=== PATIENT | male | born 1950 | race Caucasian/White ===

== ENCOUNTER 2025-08-16 11:07 | Outpatient (REF) | payer MEDICARE, SELFPAY ==
--- OUTSIDE RECORDS SUMMARY | 2025-08-16 11:55 | XMS_ITS | Encounter Summary ---
Author Organization [facility] Address [address] [place] [address] Phone Care Team Providers Care Gang Drill Operator Name Role Phone [place] Maximino Cronin DO Primary Care Provider [phone] Encounter Details Date Type Department Care Team (Latest Contact Info) Description 02/13/2019 Transcribe Orders Virtual Department [address] [place] [address] Vick Flores MD [address] [place] [address], [address] [address] [email or web address] Calculus of kidney (Primary Dx) Social History Tobacco Use Types Packs/Day Years Used Date Smoking Tobacco: Never Smokeless Tobacco: Never Alcohol Use Standard Drinks/Week Comments No 0 (1 standard drink = 0.6 oz pur e alcohol) Sex and Gender Information Value Date Recorded Sex Assigned at Male 12/05/2017 10:22 AM EST Legal Sex Male 10:20 AM EDT Gender Identity Male 12/05/2017 10:22 AM EST Sexual Orientation Straight 12/05/2017 10 :22 AM EST documented as of this encounter Plan of Treatment Upcoming Encounters Date Type Department Care Team (Late st Contact Info) Description 10/07/2025 11:00 AM EST Office Visit [facility] Neurology [address] [place] [address] [place] [address] Celio Winters MD [address] [facility] [place] [address] 03/10/2026 10:20 AM EDT Office Visit [facility] [address], [address] [place] [address] Benigno Mojica MD, [place] [address] [facility], [address] [place] [address] [email or web address] documented as of this encounter Results * US Kidneys (04/27/2019 7:59 AM EDT) Anatomical Region Laterality Modality Abdomen, Kidney Ultrasound 04/27/2019 12:2 0 PM EDT Impressions 04/27/2019 12:49 PM EDT Normal study of the kidneys. POS [id number] Narrative 04/27/2019 12:49 PM EDT HISTORY: Flank pain, urinary tract calculi. COMPARISON: None. FINDINGS: Right kidney: Kidney normal in size measuring 11.7 cm in the long axis. The kidney is normal in echogenicity. No evidence of masses, calculi, pelvocaliectasis or significant cortical thinning. Left kidney: Kidney normal in size measuring 12.6 cm in the long axis. The kidney is normal in echogenicity. No evidence of masses, calculi, pelvocaliectasis or significant cortical thinning. Procedure Note Alok Zapata MD - 04/27/2019 HISTORY: Flank pain, urinary tract calculi. COMPARISON: None. FINDINGS: Right kidney: Kidney normal in size measuring 11.7 cm in the long axis.The kidney is normal in echogenicity. No evidence of masses, calculi,pelvocaliectasis or significant cortical thinning. Left kidney: Kidney normal in size measuring 12.6 cm in the long axis.The kidney is normal in echogenicity. No evidence of masses, calculi,pelvocaliectasis or significant cortical thinning. IMPRESSION: Normal study of the kidneys. POS [id number] us Vick Flores MD [facility] RENAL Final Result documented in this encounter Visit Diagnoses Diagnosis Calculus of kidney- Primary Calculus of kidney documented in this encounter Care Teams Gang Drill Operator Relationship Specialty Start Date End Date Maximino Swartz DO [email or web address] PCP - General Internal Medicine 09/30/17 documented as of this encounter Additional Source Comments The information contained in this document represents components of the legal health record. It is not the complete legal health record.[facility]
--- OUTSIDE RECORDS SUMMARY | 2025-08-16 11:55 | XMS_ITS | Encounter Summary ---
Author Organization [facility] Address [address] [address] Phone Care Team Providers Care Fudge Candy Maker Name Role Phone Maximino Swartz DO Primary Care Provider [phone] Encounter Details Date Type Department Care Team (Late st Contact Info) Description 01/25/2018 Transcribe Orders [facility] [address] [place] [id number] Maximino Swartz DO [address] [place] [address] [email or web address] Elevated prostate specific antigen (PSA) (Primary Dx) Social History Tobacco Use Types [...] Description 10/07/2025 11:00 AM EST Office Visit [facility] Neurology [address] [place] [address] Celio Winters MD [address] [facility] [place] [address] 03/10/2026 10:20 AM EDT Office Visit [facility] [address] [facility] [address], [address] [place] [address] Benigno Mojica MD, MS [address] [facility], [address] [place] [address] [email or web address] documented as of this encounter Results * PSA (screening) (01/25/2018 10:52 AM EST) PSA 3.81 0 - 4.00 ng/mL [facility] Blood 01/25/2018 10:5 2 AM EST 01/25/2018 10:54 AM EST us Maximino Swartz DO LAB BLOOD ORDERABLES Final Resul t [facility] [address] [place] [address] documented in this encounter Visit Diagnoses Diagnosis Elevated prostate specific antigen (PSA)- Primary documented in this encounter Care Teams Fudge Candy Maker Relationship Specialty Start Date End Date Maximino Swartz DO [email or web address] PCP - General Internal Medicine 09/30/17 documented as of this encounter Additional Source Comments The information contained in this document represents components of the legal health record. It is not the complete legal health record.[facility]
--- OUTSIDE RECORDS SUMMARY | 2025-08-16 11:55 | XMS_ITS | Clinical Summary ---
Author Organization [facility] Address [address] [place] [address] Phone Care Team Providers Care Clinical Cytogenetics Director Name Role Phone Nuha Toribio DO Primary Care Provider Allergies No known active allergies Medications cholecalciferol , vitamin D3, (VITAMIN D3 ORAL) Take by mouth daily. Active escitalopram oxalate (LEXAPRO) 20 MG tablet Take 20 mg by mouth daily. 08/10/2022 Active donepeziL (ARICEPT) 10 MG tabletIndicatio ns:Moderate late onset Alzheimer's dementia without behavioral disturbance, psychotic disturbance, mood disturbance, or anxiety,Memory loss Take 1 tablet (10 mg total) by mouth nightly at bedtime. 90 tablet 3 01/07/2025 Active memantine (NAMENDA) 10 MG tabletIndicatio ns:Moderate late onset Alzheimer's dementia without behavioral disturbance, psychotic disturbance, mood disturbance, or anxiety,Memory loss Take 1 tablet (10 mg total) by mouth 2 (two) times a day. 180 tablet 3 01/07/2025 Active tamsulosin (FLOMAX) 0.4 mg Cap Take 0.4 mg by mouth daily. Active Active Problems Problem Noted Date Diagnosed Date Total knee replacement status, left 05/22/2024 Preop examination 04/10/2024 Assessment & Plan (04/10/2024 11:51 AM EDT): 73 [address] of Dr[address] Toribio with planned left total knee replacement on 05/22/24. Procedure risk is intermediate. Patient denies symptoms associated with acute coronary syndromes including unstable or severe angina, TX within 1 month, severe CHF, high grade arrhythmia or symptomatic valvular disease. Medical risk assessment at the surgical optimization clinic are as follows. NIETO cardiovascular risk score is 0.7 % risk of myocardial infarction or cardiac arrest, intraoperatively or up to 30 day post-operatively. If <1%, no further cardiac work-up recommended. DASI score was 23.45 points, able to achieve at least 5.62 METS. If DASI >18, no further cardiac testing recommended. RCRI score was 0.4 % risk for cardiovascular event including myocardial infarction, pulmonary edema, arrhythmia, cardiac arrest or complete heart block. This reflects very low risk on the scale. Patient's risk for major adverse cardiac events is low. This meets ACC/AHA guidelines for proceeding to non-cardiac surgery without additional testing. He walks ~ 15 min 2-3 x week, climbs stairs, can do some yard work, without any exertional or anginal symptoms. Blood work from 03/05/24 shows a hemoglobin A1c of 5.3%. CBC is unremarkable and BMP shows a creatinine of 1.30 and eGFR 59. EKG from 03/28/24 shows sinus bradycardia with first degree AV block, otherwise normal. HR 56 bpm, QTC 457 ms. There is no evidence of acute or prior ischemia. Compared to ECG from January 2022, no significant change found. The patient can proceed to the intended procedure without further work-up. He should have standard DVT and antibiotic prophylaxis. The patient was instructed to discontinue use of any NSAIDs, fish oil, turmeric, herbal supplements and multivitamins for 10 days before surgery as these could increase the risk of bleeding complications.The patient has the following relative contraindications to same day discharge following joint replacement surgery: severe central apnea/KAYDEN on CPAP, moderate dementia, CKD w/eGFR <60. Osteoarthritis of left knee 04/10/2024 Assessment & Plan (04/10/2024 11:37 AM EDT): Planned for left TKA on 05/22/24 by . Moderate late onset Alzheime r's dementia without behavioral disturbance, psychotic disturbance, mood disturbance, or anxiety 04/10/2024 Assessment & Plan (04/10/2024 11:44 AM EDT): Follows with neurology/ and has had neuropsych testing with which showed evidence of mild to moderate dementia. His is very supportive. Continue on medical management with donepezil 10 mg PO nightly and memantine 10 mg PO BID perioperatively. Patient does have increased risk of postoperative cognitive decline. Try to avoid sedation, keep to a regular day/night cycle, frequently reorient the patient during the hospital stay. Be sure pain is controlled and that bowel and bladder function remain normal. Arthralgia of left knee 04/29/2023 Eczema 02/28/2023 Depression with anxiety 06/29/2022 Assessment & Plan (04/10/2024 11:37 AM EDT): Mood stable. Denies any SI/HI. Continue on medical management with escitalopram oxalate 20 mg PO daily perioperatively. Benign prostatic hyperplasia 06/05/2022 Assessment & Plan (04/10/2024 11:35 AM EDT): Continue on medical management with tamsulosin 0.4 mg PO daily perioperatively. Hypersomnia 05/04/2022 Primary insomnia 05/04/2022 KAYDEN (obstructive sleep apnea) 05/04/2022 Assessment & Plan (04/10/2024 11:34 AM EDT): Follows with /sleep medicine for severe/mixed central sleep apnea, KAYDEN with jaxon-stark respiration that is well-controlled clinically by CPAP at current settings. Compliance is perfect. 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 Per 's note on 03/12/24, he is cleared for upcoming TKA on 05/21/24. Instructed the patient to bring his CPAP device to the hospital on the morning of surgery for use in the post-anesthesia care unit and on the surgical floor during his inpatient stay. CPAP (continuous positive airway pressure) depen dence 05/04/2022 Renal colic on left side 02/08/2022 Ureteral stricture, left 02/08/2022 Left ureteral stone 02/07/2022 Assessment & Plan (02/09/2022 11:29 AM EDT): Patient presented with acute onset of left flank pain/lower abdominal pain with associated nausea and vomiting. KUB show likely persistent 3 mm stone over the left UPJ. UA showed trace blood but otherwise unremarkable. Status post left ureteroscopy lithotripsy and left stent placement last night, tolerated the procedure well. Luna catheter is now out patient is doing well and voiding, eating, minimal pain. Stable for discharge home Stage 3a chronic kidney disease Assessment & Plan (04/10/2024 11:35 AM EDT): Current Cr 1.30, eGFR 59. Recommend to avoid NSAID's and nephrotoxic medications, maintain adequate hydration, renally dose morphine. Assessment & Plan (02/09/2022 11:30 AM EDT): Likely baseline stage III CKD with creatinine between 1.2-1.4. 1.2 this morning, will need follow-up in 1 week and may need referral to philosophy professor if persistent elevation Atypical nevi Assessment & Plan (02/08/2022 8:58 AM EDT): Patient has significant nevi throughout his back and flank area. Suspect due to sun exposure. Unclear if some of these may have atypical features. Advised patient to follow-up with dermatology outpatient. Patient is aware of the need for follow- up Resolved Problems Problem Noted Date Diagnosed Date Resolved Date Low back pain 08/09/2022 04/09/2024 Fracture of ankle 10/27/2018 04/09/2024 Polyp of colon 11/22/2012 04/09/2024 Kidney stones 02/07/2022 Constipation 04/09/2024 Assessment & Plan (02/09/2022 11:29 AM EDT): Evidence of constipation on KUB. Continue bowel regimen for home Immunizations Immunization Administration Dates Next Due COVID-19 (Pre-09/19) Moderna Vaccine, mRNA, PF 0 02/24/2021,01/26/2021 Influenza High-Dose Trivalent Preservative Free IM 08/07/2019,09/19/2018 Influenza Quadrivalent Preservative Free IM 07/29,09/08/2016 Influenza Quadrivalent Preservative Free Intrade rmal 08/02/2021 Pneumococcal conjugate PCV15 08/02/2021 Tdap 10/05/2021 Zoster recombinant 06/23/2021 Zoster unspecified formulation 04/17/2021 Family History Medical History Relation Comments Dementia Father Asthma Mother Heart attack Mother Breast cancer Sister 1 Cancer Sister 2 Heart attack Sister 2 Thyroid cancer Son 1 Relation Status Comments Father (Age 98) Mother (Age 73) Sister 1 Alive Sister 2 Alive Son 1 Alive Son 2 Alive Son 3 Alive Social History Tobacco Use Types Packs/Day Years Used Date Smoking Tobacco: Never Smokeless Tobacco: Never Tobacco Cessation:Counseling Given: Not Answered Alcohol Use Standard Drinks/Week Comments No 0 (1 standard drink = 0.6 oz pur e alcohol) Home Health Assessment: Transportation Answer Date Recorded Lack of Transportation (Medical) No 06/13/2024 Lack of Transportation (Non-Medical) No 06/13/2024 Patient Unable or Declines to Respond No 06/13/2024 Education Answer Date Recorded Are you interested in more education? Not on anthony e 03/25/2023 Are you concerned about learning? Not on file 03/25/2023 No 03/25/2023 No 03/25/2023 Digital Access Answer Date Recorded No 04/23/2023 No 04/23/2023 Reliable internet access at home? Not on file 04/23/2023 Device with a working camera? Not on file Intimate Partner Violence Answer Date R ecorded Are you denied basic needs s uch as food, clothing, or medical care? No 05/22/2024 In the past 12 months have y ou been in a relationship with a person who hurts, threatens, or tries to control you? No 05/22/2024 Are you denied basic needs s uch as food, clothing, or medical care? No 05/22/2024 In the past 12 months have y ou been in a relationship with a person who hurts, threatens, or tries to control you? No 05/22/2024 Sex and Gender Information Value Date Recorded Sex Assigned at Male 12/05/2017 10:22 AM EST Legal Sex Male 10:20 AM EDT Gender Identity Male 12/05/2017 10:22 AM EST Sexual Orientation Straight 12/05/2017 10 :22 AM EST Last Filed Vital Signs Vital Sign Reading Time Taken Comments Blood Pressure 108/64 03/01/2025 10:20 AM EDT Pulse 62 03/01/2025 10:20 AM EDT Temperature 36.8 C (98.2 F) 06/13/2024 12:34 PM EDT Respiratory Rate 16 06/13/2024 12:34 PM EDT Oxygen Saturation 96% 03/01/2025 10:20 AM EDT Inhaled Oxygen Concentration - - Weight 115.7 kg (255 lb) 03/01/2025 10:20 AM EDT Height 182.9 cm (6') 03/01/2025 10:20 AM EDT Body Mass Index 34.58 03/01/2025 10:20 AM EDT Plan of Treatment Upcoming Encounters Date Type Department Care Team (Late st Contact Info) Description 10/07/2025 11:00 AM EST Office Visit [facility] Neurology [address] [place] [address] Celio Winters MD [address], 2nd [place] [address] 03/10/2026 10:20 AM EDT Office Visit [facility] [address] [place] [address] 3rd Floor, [address] [place] [address] Benigno Mojica MD, [place] [address], [address] [address] Health Maintenance Due Date Last Done Comments DEPRESSION SCREENING 1964 COLOGUARD 1997 FIT TEST 1997 FOBT 1997 SIGMOIDOSCOPY 1997 VIRTUAL COLONOSCOPY 1997 ZOSTER VACCINES (2 of 2) 08/18/2021 06/23/2021, 05/2 11/2020 LIPID PANEL 10/31/2023 10/31/2018 INFLUENZA VACCINE (#1) 2025 , 07/28/2022, 08/02/2021, Additional history exists COVID-19 VACCINE (2024- season) 2025 09/09/2023, 10/13/2022, 07/28/2022, Additional history exists RSV VACCINE (1 - 1-dose 75+ series) 2027 Adult Td,Tdap Booster 10/05/2031 10/05/2021 COLONOSCOPY 08/02/2033 08/02/2023 COLORECTAL CANCER SCREENING 08/02/2033 HEPATITIS C SCREENING Completed 10/31/2018 PNEUMOCOCCAL VACCINES (50+ years) Completed 03/10/2023, 08/02/2021 SMOKING STATUS SCREENING (Once After 26 Yrs) Completed 03/01/2025 HEPATITIS A VACCINES Aged Out No long er eligible based on patient's age to complete this topic HIB VACCINES Aged Out No longer eligi ble based on patient's age to complete this topic MENINGOCOCCAL VACCINES (ACWY) Aged Out No longer eligible based on patient's age to complete this topic MENINGOCOCCAL VACCINES (B) Aged Out N o longer eligible based on patient's age to complete this topic Medical Devices Implanted Type Area Science Editor Device Identifier Shelf Expiration Date Model / Serial / Lot Screw Screw Right: Hand Stent Ureteral 7frx22 To 30cm Double Pigtail Suture Stretch Vl Positioner - [id number] Implanted:Qty : 1 on 02/08/2022 by Vick Flores MD at [facility] Left: Ureter [employer] 06/01/2024 [id number] / / [id number] Bone Cement Antibiotic Refobacin - [id number] Implanted:Qty : 2 on 05/22/2024 by Benigno Guy MD at [facility] Left: Knee [employer] [id number] 07/28/2026 [id number] / / [id number] Tibial Insert Size 7 Identity Imprint Cr - [id number] Implanted:Qty : 1 on 05/22/2024 by Benigno Guy MD at [facility] Left: Knee CONFORMIS 04/27/2029 [id number]-301-T07 S / / [id number] Femoral Component Sz 7 Identity Imprint Cr - [id number] Implanted:Qty : 1 on 05/22/2024 by Benigno Guy MD at [facility] Left: Knee CONFORMIS 04/27/2029 TCR-101-F07 S / / [id number] Knee Implant 32mmx6 Patella Itotal Ipoly - [id number] Implanted:Qty : 1 on 05/22/2024 by Benigno Guy MD at [facility] Left: Patella CONFORMIS 10/27/2024 [id number] / / [id number] Femoral Component Sz 7 6mm Cr Insert Identity Imprint - [id number] Implanted:Qty : 1 on 05/22/2024 by Benigno Guy MD at [facility] Left: Knee CONFORMIS 06/27/2028 TCR-020-067 S / / [id number] Procedures Procedure Name Priority Date/Time Associated Diagnosis Comments ENDOSCOPY, COLON 08/02/2023 10:5 8 AM EDT LIPID PANEL Routine 10/31/2018 8:55 AM EST Health check for under 8 days old Dizziness and giddiness HEPATITIS C ANTIBODY, QUALITATIVE Routine 10/31/2018 8:55 AM EST Health check for under 8 days old Dizziness and giddiness from Last 3 Months or Most Recently Relevant to Health Maintenance Results * ENDOSCOPY, COLON (08/02/2023 10:58 AM EDT) Narrative Transcriptions Nitesh Shah MD - 08/02/2023 10:58 AM EDT [facility] Patient Name: Og Carter MD:: NITESH SHAH MD, , Procedure Date: 08/02/2023 10:58 AM Date of : 1950 Age: 72 Admit Type: Outpatient Gender: Male Room: [facility] Referring MD: NUHA TORIBIO DO Exam Type: Colonoscopy Indications: High risk colon cancer surveillance: Personalhistory of colonic polyps Medications: Monitored Anesthesia Care Procedure: Informed consent was obtained from the patientafter discussion of the indications, limitations, alternatives, benefits, and risks of the procedure. Risks specifically discussed include but are not limited to medication reactions, missed lesions, bleeding, perforation, or the need for emergent surgery. Throughout the procedure, the patient's blood pressure, pulse, end-tidal CO2, and oxygensaturations were monitored continuously. The Olympus pediatric variable [id number] #2 was introduced through the anus and advanced tothe cecum, identified by appendiceal orifice andileocecal valve. The colonoscopy was performed without difficulty. The patient tolerated the procedurewell. The quality of the bowel preparation was excellent. The quality of the bowel preparation was evaluated using the BBPS (Blain Bowel Preparation Scale)with scores of: Right Colon = 3, Transverse Colon = 3and Left Colon = 3 (entire mucosa seen well with no residual staining, small fragments of stool oropaque liquid). The total BBPS score equals 9. Complications: No immediate complications. Estimated blood loss:None. Findings: The perianal and digital rectal examinations were normal. Scattered small-mouthed diverticula were found inthe sigmoid colon. Internal hemorrhoids were found duringretroflexion. The hemorrhoids were mild. The exam was otherwise normal throughout theexamined colon. Impression: - Mild diverticulosis in the sigmoid colon. - Internal hemorrhoids. - No specimens collected. Recommendation: - Discharge patient to home. - Repeat colonoscopy in 5 years for surveillance. NITESH SHAH MD, 08/02/2023 11:23:22 AM This report has been signed electronically. Number of Addenda: 0 Note Initiated On: 08/02/2023 10:58 AM Procedure Code(s): --- Professional --- 21250, Colonoscopy, flexible; diagnostic, including collection of specimen(s) by brushing or washing, when performed (separateprocedure) --- Technical --- 61511, Colonoscopy, flexible; diagnostic, including collection of specimen(s) by brushing or washing, when performed (separateprocedure) Diagnosis Code(s): --- Professional --- Z86.010, Personal history of colonic polyps K64.8, Other hemorrhoids K57.30, Diverticulosis of large intestine without perforation or abscess without bleeding --- Technical --- Z86.010, Personal history of colonic polyps K64.8, Other hemorrhoids K57.30, Diverticulosis of large intestine without perforation or abscess without bleeding CPT copyright 2021 [employer]. All rights reserved. The codes documented in this report are preliminary and upon fiber technician reviewmay be revised to meet current compliance requirements. Procedure Date: 08/02/2023 10:58:[address] [place] [address] [place] Nuha Toribio DO GI PROCEDURE ORDERABLES Final Re sult * Hepatitis C antibody, qualitative (10/31/2018 8:55 AM EST) HCV Negative Negative [facility] Comment: This is a screening test and should be confirmed with molecular testing Blood 10/31/2018 8:55 AM EST 10/31/2018 9:05 AM EST us Meaghan Gonzalez FIREPROOF DOOR MAKER LAB BLOOD ORDERABLES Final Result [address] [address] * (ABNORMAL) Lipid panel (10/31/2018 8:55 AM EST) HDL 46 mg/dL [facility] Comment: Interpretation <40 mg/dL: Low HDL cholesterol (major risk factor for CHD) Greater than or equal to 60 mg/dL: High HDL cholesterol ( negative risk factor for CHD) HDL - cholesterol is affected by a number of factors, e.g. smoking, excerise, hormones, sex and age. CHOLESTEROL 151 0 - 240 mg/dL [facility] TRIGLYCERIDES 99 30 - 160 mg/dL [facility] LDL 85 50 - 129 mg/dL [facility] Comment: LDL levels in terms of risk for coronary heart disease: <100 mg/dL: Optimal 100-129 mg/dL: Near or above optimal 130-159 mg/dL: Borderline high 160-189 mg/dL: High >190 mg/dL: Very High CARDIAC RISK RATIO 3.3(L) 3.4 - 5.0 C [facility] Blood 10/31/2018 8:55 AM EST 10/31/2018 9:05 AM EST Meaghan Gonzalez FIREPROOF DOOR MAKER LAB BLOOD ORDERABLES Final Result Performing Organization Address City/State/[facility] Co de Phone Number [facility] [address] [place] [address] from Last 3 Months or Most Recently Relevant to Health Maintenance Insurance Pose MEDICARE SUPPLEMENT MEDICARE PART A & B FOR LIFE MEDICARE SUPPLEMENT [facility]. [facility] Address: [place] [address] MEDICARE PART A & B FOR LIFE MEDICARE SUPPLEMENT C. [facility] Address: [place] [address] MEDICARE PART A & B FOR LIFE MEDICARE SUPPLEMENT C. [facility] Address: [address] [address] MEDICARE PART A & B FOR LIFE MEDICARE SUPPLEMENT MEDICARE PART A & B Pose MEDICARE SUPPLEMENT C. [facility] Address: [address] [address] MEDICARE PART A & B Pose MEDICARE SUPPLEMENT C. [facility] Address: [address] [address] MEDICARE PART A & B Pose MEDICARE SUPPLEMENT C. [facility] Address: [address] [address] MEDICARE PART A & B Pose MEDICARE SUPPLEMENT MEDICARE PART A & B Advance Directives For more information, please contact: [phone] (9AM - 5PM [facility], Tuesday-Tuesday) Documents on File Type Date Recorded Patient Resistor Tester Expl anation Healthcare Proxy 05/24/2024 3:42 PM MOLST 05/24/2024 3:42 PM * Full Code (Latest Code Status on File) Date Activated Date Inactivated Comments 06/13/2023 9:11 AM Question Answer Comments Code Status Confirmed With: Patient * Full Code Date Activated Date Inactivated Comments 02/07/2022 9:34 PM 06/13/2023 9:11 AM Question Answer Comments Code Status Confirmed With: Patient Code Status Communicated To: Inpatient Attending Healthcare Agents on File Name Relationship Healthcare Agent Relationshi p Communication Perry Edmond .Primary Health Care Agent (Proxy form on file) Nuha Alcazarloreneamy Mayito Alternate Health care Agent (Proxy form on file) Care Teams Clinical Cytogenetics Director Relationship Specialty Start Date End Date Nuha Toribio DO [email or web address] PCP - General Internal Medicine 09/30/17 Additional Source Comments The information contained in this document represents components of the legal health record. It is not the complete legal health record.[facility]
--- OUTSIDE RECORDS SUMMARY | 2025-08-16 11:55 | XMS_ITS | Encounter Summary ---
Author Organization [facility] Address [address] [place] [address] Phone Care Team Providers Care Rendering Equipment Tender Name Role Phone Maximino Swartz DO Primary Care Provider Reason for Referral * MRI/CAT Scan - Closed Specialty Diagnoses / Procedures Referred By Nora t Referred To Contact Radiology Diagnoses Other amnesia Procedures MRI Brain Irma Valdez PA Phone: tel: fax: Referral ID Status Reason Start Date Expiration Date Visits Re quested Visits Authorized [id number] Closed 10/20/2021 10/20/2022 1 1 Encounter Details Date Type Department Care Team (Latest Contact Info) Description 10/20/2021 Transcribe Orders Virtual Department [address] [place] [address] Irma Valdez PA [address] [facility] [place] [address] [place] [address] Other amnesia (Primary Dx) Social History Tobacco Use Types [...] Description 10/07/2025 11:00 AM EST Office Visit [facility] Neurology [address] [place] [address] Celio Winters MD [address] [facility] 2nd [place] [address] [email or web address] 03/10/2026 10:20 AM EDT Office Visit [facility] [address] [facility] 3rd Floor, [address] [place] [address] Benigno Mojica MD, [place] [address] [facility], [address] [place] [address] [email or web address] documented as of this encounter Results * MRI BRAIN WITHOUT CONTRAST (11/05/2021 9:33 PM EST) Anatomical Region Laterality Modality Head Magnetic Resonan ce 11/06/2021 7:44 AM EST Impressions 11/06/2021 7:46 AM EST No acute infarct, mass lesion or hemorrhage. Narrative 11/06/2021 7:46 AM EST MRI BRAIN WITHOUT CONTRAST TECHNIQUE: Multi-sequence, multi-planar MRI of the brain was performed without intravenous contrast. COMPARISON: None FINDINGS: Brain Parenchyma: No evidence of acute infarct, mass lesion, or hemorrhage. Ventricular System and Extra-Axial Spaces: There is no evidence of midline shift or hydrocephalus. Extracranial Structures: Arterial flow voids in the skull base are present. No sinus or mastoid fluid. Procedure Note Stephanie Villeda MD - 11/06/2021 MRI BRAIN WITHOUT CONTRAST TECHNIQUE: Multi-sequence, multi-planar MRI of the brain was performed withoutintravenous contrast. COMPARISON: None FINDINGS: Brain Parenchyma: No evidence of acute infarct, mass lesion, orhemorrhage. Ventricular System and Extra-Axial Spaces: There is no evidence of midlineshift or hydrocephalus. Extracranial Structures: Arterial flow voids in the skull base arepresent. No sinus or mastoid fluid. IMPRESSION: No acute infarct, mass lesion or hemorrhage. Irma DUNLAP IMG MR HEAD/NECK Final Resu lt documented in this encounter Visit Diagnoses Diagnosis Other amnesia- Primary Other amnesia documented in this encounter Care Teams Rendering Equipment Tender Relationship Specialty Start Date End Date Maximino Swartz DO [email or web address] PCP - General Internal Medicine 09/30/17 documented as of this encounter Additional Source Comments The information contained in this document represents components of the legal health record. It is not the complete legal health record.[facility]
--- OUTSIDE RECORDS SUMMARY | 2025-08-16 11:55 | XMS_ITS | Encounter Summary ---
Author Organization [facility] Address [address] [facility] [address] [place] [address] Phone Care Team Providers Care Assistant Infant Teacher Name Role Phone Maximino Swartz DO Primary Care Provider [phone] Encounter Details Date Type Department Care Team (Late st Contact Info) Description 05/22/2024 Procedure Pass OR Admitting Dept - Virtual Department [address] [place] [address] Social History Tobacco Use Types Packs/Day Years Used Date Smoking Tobacco: Never Smokeless Tobacco: Never Alcohol Use Standard Drinks/Week Comments No 0 (1 standard drink = 0.6 oz pur e alcohol) Home Health Assessment: Transportation Answer Date Recorded Lack of Transportation (Medical) No 05/24/2024 Lack of Transportation (Non-Medical) No 05/24/2024 Patient Unable or Declines to Respond No 05/24/2024 Education Answer Date Recorded Are you interested in more education? Not on anthony e 03/25/2023 Are you concerned about learning? Not on file 03/25/2023 No 03/25/2023 No 03/25/2023 Digital Access Answer Date Recorded No 04/23/2023 No 04/23/2023 Reliable internet access at home? Not on file 04/23/2023 Device with a working camera? Not on file 05 / Intimate Partner Violence Answer Date R ecorded [...] AM EST documented as of this encounter Functional Status * Calculated C-SSRS Risk Score (Lifetime/Recent) Answer Date of Assessment Author No Risk Indicated 05/22/2024 3:25 PM EDT Jaycee Martinez RN * [place] Suicide Severity Rating Scale (Screener/Recent Self-Report) Question Answer Date of Assessment Author 1. Wish to be (Past 1 Month) No 024 3:25 PM EDT Jaycee Martinez, ARIANA 2. Non-Specific Active Suici zackery Thoughts (Past 1 Month) No 05/22/2024 3:25 PM EDT Jaycee Martinez , ARIANA 6. Suicidal Behavior (Lifetime) No 4 3:25 PM EDT Jaycee Martinez RN documented as of this encounter Plan of Treatment Upcoming Encounters Date Type Department Care Team (Late st Contact Info) Description 10/07/2025 11:00 AM EST Office Visit [facility] Neurology [address] [place] [address] [place] [address] Celio Winters MD 22 [facility], 2nd [place] [address] 03/10/2026 10:20 AM EDT Office Visit [facility] [address] [place] [address] 3rd Floor, [address] [place] [address] Benigno Mojica MD, MS 22 [facility], [address] [place] [address] [email or web address] documented as of this encounter Visit Diagnoses Not on filedocumented in this encounter Care Teams Assistant Infant Teacher Relationship Specialty Start Date End Date Maximino Swartz DO [email or web address] PCP - General Internal Medicine 09/30/17 documented as of this encounter Additional Source Comments The information contained in this document represents components of the legal health record. It is not the complete legal health record.[facility]
--- OUTSIDE RECORDS SUMMARY | 2025-08-16 11:55 | XMS_ITS | Encounter Summary ---
Author Organization [facility] Address [address] [place] [address] Phone Care Team Providers Care Body Wirer Name Role Phone Maximino Swartz DO Primary Care Provider [phone] Encounter Details Date Type Department Care Team (Late st Contact Info) Description 03/02/2024 Procedure Pass [facility], Ct Scan - [address] [address] Social History Tobacco Use Types Packs/Day Years Used Date Smoking Tobacco: Never Smokeless Tobacco: Never Alcohol Use Standard Drinks/Week Comments No 0 (1 standard drink = 0.6 oz pur e alcohol) Education Answer Date Recorded Are you interested in more education? Not on anthony e 03/25/2023 Are you concerned about learning? Not on file 03/25/2023 No 03/25/2023 No 03/25/2023 Digital Access Answer Date Recorded No 04/23/2023 No 04/23/2023 Reliable internet access at home? Not on file 04/23/2023 Device with a working camera? Not on file Sex and Gender Information Value Date Recorded Sex Assigned at Male 12/05/2017 10:22 AM EST Legal Sex Male 10:20 AM EDT Gender Identity Male 12/05/2017 10:22 AM EST Sexual Orientation Straight 12/05/2017 10 :22 AM EST documented as of this encounter Plan of Treatment Upcoming Encounters Date Type Department Care Team (Late st Contact Info) Description 10/07/2025 11:00 AM EST Office Visit [facility] Neurology [address] [place] [address] Celio Winters MD 22 [facility], 2nd [place] [address] 03/10/2026 10:20 AM EDT Office Visit [facility] 22 [facility] 3rd Floor, [address] [place] [address] Benigno Mojiac MD, MS 22 [facility], [address] [place] [address] [email or web address] documented as of this encounter Visit Diagnoses Not on filedocumented in this encounter Care Teams Body Wirer Relationship Specialty Start Date End Date Maximino Swartz DO PCP - General Internal Medicine 09/30/17 documented as of this encounter Additional Source Comments The information contained in this document represents components of the legal health record. It is not the complete legal health record.[facility]
--- OUTSIDE RECORDS SUMMARY | 2025-08-16 11:55 | XMS_ITS | Encounter Summary ---
Author Organization [facility] Address [address] [facility] [address] [place] [address] Phone Care Team Providers Care Sharepoint Solutions Architect Name Role Phone Orlandocarin Maximino Cronin DO Primary Care Provider Encounter Details Date Type Department Care Team (Latest Contact Info) Description 04/25/2019 Transcribe Orders [facility] [address] [place] [address] Vick Flores MD [address] [place] [address], [address] [address] [email or web address] Elevated prostate specific antigen (PSA) (Primary Dx) [...] Description 10/07/2025 11:00 AM EST Office Visit [facility]rology [address] [place] [address] Celio Winters MD 22 [facility], 2nd [place] [address] 03/10/2026 10:20 AM EDT Office Visit [facility] 22 [facility] 3rd Floor, [address] [place] [address] Benigno Mojica MD, MS 22 [facility], [address] [place] [address] [email or web address] documented as of this encounter Results * (ABNORMAL) PSA (screening) (04/25/2019 10:17 AM EDT) PSA 4.65(H) 0 - 4.00 ng/mL [facility] Blood 04/25/2019 10:1 7 AM EDT 04/25/2019 10:20 AM EDT us Vick Flores MD LAB BLOOD ORDERABLES Final Res ult [facility] [address] [place] [address] documented in this encounter Visit Diagnoses Diagnosis Elevated prostate specific antigen (PSA)- Primary documented in this encounter Care Teams Sharepoint Solutions Architect Relationship Specialty Start Date End Date Maximino Swartz DO PCP - General Internal Medicine 09/30/17 documented as of this encounter Additional Source Comments The information contained in this document represents components of the legal health record. It is not the complete legal health record.[facility]
--- OUTSIDE RECORDS SUMMARY | 2025-08-16 11:55 | XMS_ITS | Clinical Summary ---
Author Organization [facility] Address [address] [place] [address] Care Team Providers Care Relay Adjuster Name Role Phone Maximino Swartz DO Primary Care Provider [phone] Allergies No known active allergies Medications No known medications Active Problems No known active problems Social History Tobacco Use Types Packs/Day Years Used Date Smoking Tobacco: Never Smokeless Tobacco: Never Alcohol Use Standard Drinks/Week Comments No 0 (1 standard drink = 0.6 oz pur e alcohol) Sex and Gender Information Value Date Recorded Sex Assigned at Not on file Gender Identity Not on file Sexual Orientation Not on file Plan of Treatment Health Maintenance Due Date Last Done Comments Hepatitis C Screening 1950 COVID-19 Vaccine (#1) 04[birth year]03/1953 Depression Screening 1964 Preventative Health Evaluation 1970 DTap / Tdap / Td (1 - Tdap) 1971 Colon Cancer Screening (Colonoscopy) 1997 Shingrix-Zoster Vaccine (1 of 2) 2002 Fall Risk Assessment 2017 Pneumococcal Vaccine (1 of 1 - PCV) 2017 Influenza Vaccine (#1) 2025 RSV Adult > 60+ Yrs or Pregn ant (1 - 1-dose 75+ series) 2027 Hepatitis B Vaccines Aged Out No long er eligible based on patient's age to complete this topic RSV Ped < 20 months Aged Out No longe r eligible based on patient's age to complete this topic Care Teams Relay Adjuster Relationship Specialty Start Date End Date Maximino Swartz DO [address] [place] [address] PCP - General Internal Medicine 03/10/18
--- OUTSIDE RECORDS SUMMARY | 2025-08-16 11:55 | XMS_ITS | Encounter Summary ---
Author Organization [facility] Address [address] [facility] [address] [place] [address] Phone Care Team Providers Care Shank Burnisher Name Role Phone Orlandocarin Maximino Cronin DO Primary Care Provider [phone] Encounter Details Date Type Department Care Team (Late st Contact Info) Description 12/19/2017 Ancillary Orders [address] [id number] Faviola Tatum PA-C [address] [place] [address] Orthopedics & Sports Medicine, [place], [place] [id number] [email or web address] Left ankle pain, unspecified chronicity Social History Tobacco Use Types Packs/Day Years [...] 10/07/2025 11:00 AM EST Office Visit [facility] Neurology 22 [place] [address] Celio Winters MD 22 [facility], 2nd [place] [address] 03/10/2026 10:20 AM EDT Office Visit [facility] [address] 3rd Floor, [address] [place] [address] Benigno Mojica MD, MS 22 [facility], [address] [place] [address] [email or web address] documented as of this encounter Results * XR ANKLE 3 OR MORE VIEWS (LEFT) (12/21/2017 8:53 AM EST) Narrative Eli Steward - 12/21/2017 8:53 AM EST This image report has been auto-finalized and has not been read by a Radiologist. Interpretation has been included in the provider encounter note for this date of service. Faviola Tatum PA-C IMG XR LOWER EXTREMI TY Final Result documented in this encounter Visit Diagnoses Diagnosis Left ankle pain, unspecified chronicity Left ankle pain, unspecified chronicity documented in this encounter Care Teams Shank Burnisher Relationship Specialty Start Date End Date Maximino Swartz DO PCP - General Internal Medicine 09/30/17 documented as of this encounter Additional Source Comments The information contained in this document represents components of the legal health record. It is not the complete legal health record.[facility]
--- OUTSIDE RECORDS SUMMARY | 2025-08-16 11:55 | XMS_ITS | Encounter Summary ---
Author Organization [facility] Address [address] [facility] [address] [place] [address] Phone Care Team Providers Care Dermatology Technician Name Role Phone Orlandocarin Maximino Cronin DO Primary Care Provider [phone] Encounter Details Date Type Department Care Team (Latest Contact Info) Description 03/15/[address] [facility] [address] [place] [address] Vick Flores MD [address] [place] [address], [address] [address] [email or web address] Elevated prostate specific antigen (PSA) (Primary Dx) [...] AM EST Office Visit [facility] Neurology [address] [place] [address] Celio Winters MD 22 [facility], 2nd [place] [address] 03/10/2026 10:20 AM EDT Office Visit [facility] 22 [facility] 3rd Floor, [address] [place] [address] Benigno Mojica MD, MS 22 [facility], [address] [place] [address] [email or web address] documented as of this encounter Results * (ABNORMAL) PSA (screening) (03/15/2018 10:02 AM EDT) PSA 4.88(H) 0 - 4.00 ng/mL [facility] Blood 03/15/2018 10:0 2 AM EDT 03/15/2018 10:07 AM EDT us Vick Flores MD LAB BLOOD ORDERABLES Final Res ult [facility] [address] [place] [address] documented in this encounter Visit Diagnoses Diagnosis Elevated prostate specific antigen (PSA)- Primary documented in this encounter Care Teams Dermatology Technician Relationship Specialty Start Date End Date Maximino Swartz DO [email or web address] PCP - General Internal Medicine 09/30/17 documented as of this encounter Additional Source Comments The information contained in this document represents components of the legal health record. It is not the complete legal health record.[facility]
--- OUTSIDE RECORDS SUMMARY | 2025-08-16 11:55 | XMS_ITS | Encounter Summary ---
Author Organization [facility] Address [address] [facility] [address] [place] [address] Phone Care Team Providers Care Service Mechanic Name Role Phone OrlandocarinMaximino DO Primary Care Provider [phone] Encounter Details Date Type Department Care Team (Late st Contact Info) Description 10/20/2021 Procedure Pass [facility], [address] [address] Social History Tobacco Use Types Packs/Day Years [...] Description 10/07/2025 11:00 AM EST Office Visit [facility] Neurology [address] [place] [address] Celio Winters MD [address] [facility], 2nd Floor [place], [place] [address] 03/10/2026 10:20 AM EDT Office Visit [facility] 22 [facility] 3rd Floor, [address] [place], [place] [address] Benigno Mojica MD, MS [address] [facility], [address] [place], [place] [address] [email or web address] documented as of this encounter Visit Diagnoses Not on filedocumented in this encounter Care Teams Service Mechanic Relationship Specialty Start Date End Date Maximino Swartz DO [email or web address] PCP - General Internal Medicine 09/30/17 documented as of this encounter Additional Source Comments The information contained in this document represents components of the legal health record. It is not the complete legal health record.[facility]
--- OUTSIDE RECORDS SUMMARY | 2025-08-16 11:55 | XMS_ITS | Encounter Summary ---
Author Organization [facility] Address [address] [place] [address] Phone Care Team Providers Care Plastic Dolls Mold Filler Name Role Phone Maximino Swartz DO Primary Care Provider [phone] Encounter Details Date Type Department Care Team (Late st Contact Info) Description 01/17/2022 Procedure Pass [facility], Ct Scan - [address] [address] Social History Tobacco Use Types Packs/Day Years [...] Date of Assessment Author No Risk Indicated 01/17/2022 3:40 PM EST Jannette Gandhi, RN * [place] Suicide Severity Rating Scale (Screener/Recent Self-Report) Question Answer Date of Assessment Author 1. Wish to be (Past 1 Month) No 01/17/2022 3:40 PM EST Jannette Lopez RN 2. Non-Specific Active Suici zackery Thoughts (Past 1 Month) No 01/17/2022 3:40 PM EST Cari Lopez RN 6. Suicidal Behavior (Lifetime) No 3:40 PM EST Jannette Lopez RN documented as of this encounter Plan of Treatment Upcoming Encounters Date Type Department Care Team (Late st Contact Info) Description 10/07/2025 11:00 AM EST Office Visit [facility] Neurology [address] [place] [address] Celio Winters MD 22 [facility], 2nd [place] [address] [email or web address] 03/10/2026 10:20 AM EDT Office Visit [facility] 22 [facility] 3rd Floor, [address] [place] [address] Benigno Mojica MD, MS 22 [facility], [address] [address] [email or web address] documented as of this encounter Visit Diagnoses Not on filedocumented in this encounter Care Teams Plastic Dolls Mold Filler Relationship Specialty Start Date End Date Maximino Swartz DO PCP - General Internal Medicine 09/30/17 documented as of this encounter Additional Source Comments The information contained in this document represents components of the legal health record. It is not the complete legal health record.[facility]
--- OUTSIDE RECORDS SUMMARY | 2025-08-16 11:55 | XMS_ITS | Encounter Summary ---
Author Organization [facility] Address [address] [facility] [address] [place] [address] Phone Care Team Providers Care Health Information Provider Name Role Phone Maximino Swartz Mehrdad BRIZUELA Primary Care Provider [phone] Encounter Details Date Type Department Care Team (Late st Contact Info) Description 12/19/2017 Ancillary Orders [facility]opedics & Sports Medicine [address] [place] [id number] Faviola Tatum PA-C [address] [place] [address] Orthopedics & Sports Medicine, [facility] [place], [place] [phone] Social History Tobacco Use Types Packs/Day Years [...] Description 10/07/2025 11:00 AM EST Office Visit [facility] Neurology [address] [place] [address] Celio Winters MD 22 [facility], 2nd [place] [address] [email or web address] 03/10/2026 10:20 AM EDT Office Visit [facility] 22 [facility] 3rd Floor, [address] [place] [address] Benigno Mojica MD, MS 22 [facility], [address] [place] [address] [email or web address] documented as of this encounter Visit Diagnoses Not on filedocumented in this encounter Care Teams Health Information Provider Relationship Specialty Start Date End Date Maximino Swartz DO [email or web address] PCP - General Internal Medicine 09/30/17 documented as of this encounter Additional Source Comments The information contained in this document represents components of the legal health record. It is not the complete legal health record.[facility]
--- OUTSIDE RECORDS SUMMARY | 2025-08-16 11:56 | XMS_ITS | Encounter Summary ---
Author Organization [facility] Address [address] [facility] [address] [place] [address] Phone Care Team Providers Care Edge Bander Operator Name Role Phone Maximino Swartz DO Primary Care Provider [phone] Encounter Details Date Type Department Care Team (Late st Contact Info) Description 09/30/2017 Ancillary Orders [facility], X-Ray - [address] [address] Mary Beth Hemphill PA-C [address] [place] [address] Pain and swelling of left ankle Social History Tobacco Use Types Packs/Day Years [...] Description 10/07/2025 11:00 AM EST Office Visit [facility] [address] [place] [address] Celio Winters MD 22 [facility], 2nd [place] [address] [email or web address] 03/10/2026 10:20 AM EDT Office Visit [facility] 22 [facility] 3rd Floor, [address] [place] [address] Benigno Mojica MD, MS 22 [facility], [address] [place] [address] [email or web address] documented as of this encounter Results * XR ANKLE 3 OR MORE VIEWS (LEFT) (09/30/2017 11:13 AM EDT) Anatomical Region Laterality Modality Ankle Left Radiographic Roxann ging 09/30/2017 11:1 7 AM EDT Impressions 09/30/2017 11:19 AM EDT Minimally displaced distal fibular fracture POS [id number] Narrative 09/30/2017 11:19 AM EDT Three views No comparison Lateral soft tissue swelling Minimally displaced oblique fracture of the distal fibula extending into the corner of the ankle mortise. No other bony injury The mortise is not widened. Procedure Note Mauricio Mckeon MD - 09/30/2017 Three views No comparison Lateral soft tissue swelling Minimally displaced oblique fracture of the distal fibula extending intothe corner of the ankle mortise. No other bony injury The mortise is not widened. IMPRESSION: Minimally displaced distal fibular fracture POS [id number] February Joby URIBE IMG XR LOWER EXTREMITY Final Result documented in this encounter Visit Diagnoses Diagnosis Pain and swelling of left ankle Pain and swelling of left ankle documented in this encounter Care Teams Edge Bander Operator Relationship Specialty Start Date End Date Maximino Swartz DO [email or web address] PCP - General Internal Medicine 09/30/17 documented as of this encounter Additional Source Comments The information contained in this document represents components of the legal health record. It is not the complete legal health record.[facility]
--- OUTSIDE RECORDS SUMMARY | 2025-08-16 11:56 | XMS_ITS | Encounter Summary ---
Author Organization [facility] Address [address] [facility] [address] [place] [address] Phone Care Team Providers Care Brusher Hand Name Role Phone Maximino Swartz DO Primary Care Provider [phone] Encounter Details Date Type Department Care Team (Late st Contact Info) Description 09/30/2017 Ancillary Orders [facility], X-Ray - [address] [address] Mary Beth Hemphill PA-C [address] [place] [address] Pain and swelling of left ankle Social [...] 10/07/2025 11:00 AM EST Office Visit [facility] [address] [place] [address] Celio Winters MD 22 [facility], 2nd [place] [address] 03/10/2026 10:20 AM EDT Office Visit [facility] 22 [facility] 3rd Floor, [address] [place] [address] Benigno Mojica MD, MS 22 [facility], [address] [place] [address] [email or web address] documented as of this encounter Results * XR FOOT 3 OR MORE VIEWS (LEFT) (09/30/2017 11:12 AM EDT) Anatomical Region Laterality Modality Foot Left Radiographic Roxann ging 09/30/2017 11:1 9 AM EDT Impressions 09/30/2017 11:20 AM EDT Distal fibular but no foot fracture POS [id number] Narrative 09/30/2017 11:20 AM EDT Three views. No comparison No fracture or dislocation in the foot. Distal fibular fracture again seen. Minor degenerative changes in the dorsal midfoot. Small posterior and plantar calcaneal spurs. Procedure Note Mauricio Mckeon MD - 09/30/2017 Three views. No comparison No fracture or dislocation in the foot. Distal fibular fracture againseen. Minor degenerative changes in the dorsal midfoot. Small posterior and plantar calcaneal spurs. IMPRESSION: Distal fibular but no foot fracture POS [id number] February Joby URIBE IMG XR LOWER EXTREMITY Final Result documented in this encounter Visit Diagnoses Diagnosis Pain and swelling of left ankle Pain and swelling of left ankle documented in this encounter Care Teams Brusher Hand Relationship Specialty Start Date End Date Maximino Swartz DO [email or web address] PCP - General Internal Medicine 09/30/17 documented as of this encounter Additional Source Comments The information contained in this document represents components of the legal health record. It is not the complete legal health record.[facility]
--- OUTSIDE RECORDS SUMMARY | 2025-08-16 11:56 | XMS_ITS | Encounter Summary ---
Author Organization [facility] Address [address] [facility] [address] [place] [address] Phone Care Team Providers Care Heavy Forger Helper Name Role Phone OrlandocarinMaximino DO Primary Care Provider [phone] Encounter Details Date Type Department Care Team (Late st Contact Info) Description 10/20/2017 Procedure Pass [facility], Ct Scan - [address] [address] Social History Tobacco Use Types Packs/Day Years [...] Description 10/07/2025 11:00 AM EST Office Visit [facility] Neurology [address] [place] [address] Celio Winters MD 22 [facility], 2nd Floor [place], [place] [phone] 03/10/2026 10:20 AM EDT Office Visit [facility] 22 [facility] 3rd Floor, [address] [place], [place] [phone] Benigno Mojica MD, MS [address] [facility], [address] [place], [place] [phone] [email or web address] documented as of this encounter Visit Diagnoses Not on filedocumented in this encounter Care Teams Heavy Forger Helper Relationship Specialty Start Date End Date Maximino Swartz DO [email or web address] PCP - General Internal Medicine 09/30/17 documented as of this encounter Additional Source Comments The information contained in this document represents components of the legal health record. It is not the complete legal health record.[facility]
--- OUTSIDE RECORDS SUMMARY | 2025-08-16 11:56 | XMS_ITS | Encounter Summary ---
Author Organization [facility] Address [address] [place] [address] Phone Care Team Providers Care Sanitation Worker Cleaning Machinery Name Role Phone Maximino Swartz DO Primary Care Provider [phone] Encounter Details Date Type Department Care Team (Late st Contact Info) Description 08/02/2023 Procedure Pass [facility] Admitting Dept Virtual Department 30 [place] [address] Social History Tobacco Use Types Packs/Day Years [...] Description 10/07/2025 11:00 AM EST Office Visit [facility] Neurology 22 [place] [address] Celio Winters MD 22 [facility], 2nd [place] [address] 03/10/2026 10:20 AM EDT Office Visit [facility] 22 [facility] 3rd Floor, [address] [place] [address] Benigno Mojica MD, MS [address] [facility], [address] [place] [address] [email or web address] documented as of this encounter Visit Diagnoses Not on filedocumented in this encounter Care Teams Sanitation Worker Cleaning Machinery Relationship Specialty Start Date End Date Maximino Swartz DO PCP - General Internal Medicine 09/30/17 documented as of this encounter Additional Source Comments The information contained in this document represents components of the legal health record. It is not the complete legal health record.[facility]
--- OUTSIDE RECORDS SUMMARY | 2025-08-16 11:56 | XMS_ITS | Encounter Summary ---
Author Organization [facility] Address [address] [facility] [address] [place] [address] Phone Care Team Providers Care Automotive Exhaust Emissions Technician Name Role Phone Maximino Swartz DO Primary Care Provider [phone] Encounter Details Date Type Department Care Team (Latest Contact Info) Description 11/15/2017 Ancillary Orders Virtual Department 30 [place] [address] Vick Flores MD [facility]0 [facility], [address] [place] [address] [email or web address] Calculus of ureter; Other hydronephrosis Social History Tobacco Use Types Packs/Day Years [...] Description 10/07/2025 11:00 AM EST Office Visit [facility] Neurology [address] [place] [address] [place] [address] Celio Winters MD 22 [facility], 2nd [place] [address] [email or web address] 03/10/2026 10:20 AM EDT Office Visit [facility] [address] 3rd Floor, [address] [place] [address] Benigno Mojica MD, MS 22 [facility], [address] [place] [address] [email or web address] documented as of this encounter Results * US Kidneys and Bladder (01/26/2018 10:18 AM EST) Anatomical Region Laterality Modality Abdomen, Kidney Ultrasound 01/26/2018 11:4 6 AM EST Impressions 01/26/2018 11:48 AM EST Normal study of the kidneys. Poor evaluation of the urinary bladder due to underdistention. POS [id number] Narrative 01/26/2018 11:48 AM EST HISTORY: History of right-sided pain and UVJ calculus. Patient is status-post removal of calculus on 12/12/2017. COMPARISON: CT abdomen/pelvis 11/22/2017. FINDINGS: Right Kidney: The kidney is normal in size and echogenicity. No evidence of masses, calculi, pelvocaliectasis or significant cortical thinning. Left Kidney: The kidney is normal in size and echogenicity. No evidence of masses, calculi, pelvocaliectasis or significant cortical thinning. Bladder: The bladder is undistended and is poorly evaluated. Prevoid bladder volume measures 40 cc. Procedure Note Alok Zapata MD - 01/26/2018 HISTORY: History of right-sided pain and UVJ calculus. Patient isstatus-post removal of calculus on 12/12/2017. COMPARISON: CT abdomen/pelvis 11/22/2017. FINDINGS: Right Kidney: The kidney is normal in size and echogenicity. No evidenceof masses, calculi, pelvocaliectasis or significant cortical thinning. Left Kidney: The kidney is normal in size and echogenicity. No evidenceof masses, calculi, pelvocaliectasis or significant cortical thinning. Bladder: The bladder is undistended and is poorly evaluated. Prevoidbladder volume measures 40 cc. IMPRESSION: Normal study of the kidneys. Poor evaluation of the urinary bladder dueto underdistention. POS [id number] us Vick Flores MD [facility] RENAL Final Result documented in this encounter Visit Diagnoses Diagnosis Calculus of ureter Other hydronephrosis Calculus of ureter Other hydronephrosis documented in this encounter Care Teams Automotive Exhaust Emissions Technician Relationship Specialty Start Date End Date Maximino Swartz DO [email or web address] PCP - General Internal Medicine 09/30/17 documented as of this encounter Additional Source Comments The information contained in this document represents components of the legal health record. It is not the complete legal health record.[facility]
--- OUTSIDE RECORDS SUMMARY | 2025-08-16 11:56 | XMS_ITS | Encounter Summary ---
Author Organization [facility] Address [address] [facility] [address] [place] [address] Phone Care Team Providers Care U.[place]. Senator Name Role Phone Maximino Swartz DO Primary Care Provider [phone] Encounter Details Date Type Department Care Team (Late st Contact Info) Description 12/12/2017 Procedure Pass [place] Admitting Dept - Virtual Department [address] [place] [address] Social History Tobacco Use Types Packs/Day Years [...] Description 10/07/2025 11:00 AM EST Office Visit [facility] Neurology [address] [place] [address] Celio Winters MD 22 [facility], 2nd [place] [address] 03/10/2026 10:20 AM EDT Office Visit [facility] 22 [facility] 3rd Floor, [address] [place], [place] [phone] Benigno Mojica MD, MS 22 [facility], [address] [place], [place] [phone] [email or web address] documented as of this encounter Visit Diagnoses Not on filedocumented in this encounter Care Teams U.[place]. Senator Relationship Specialty Start Date End Date Maximino Swartz DO PCP - General Internal Medicine 09/30/17 documented as of this encounter Additional Source Comments The information contained in this document represents components of the legal health record. It is not the complete legal health record.[facility]
--- OUTSIDE RECORDS SUMMARY | 2025-08-16 11:56 | XMS_ITS | Encounter Summary ---
Author Organization [facility] Address [address] [facility] [address] [place] [address] Phone Care Team Providers Care Cartography Technician Name Role Phone Maximino Swartz DO Primary Care Provider [phone] Encounter Details Date Type Department Care Team (Late st Contact Info) Description 02/08/2022 Procedure Pass [place] Admitting Dept - Virtual Department [address] [place] [phone] Social History Tobacco Use Types Packs/Day Years [...] Encounters Date Type Department Care Team (Late Contact Info) Description 10/07/2025 11:00 AM EST Office Visit [facility] Neurology [address] [place] [address] Celio Winters MD 22 [facility], 2nd Floor [place], [place] [phone] 03/10/2026 10:20 AM EDT Office Visit [facility] 22 [facility] 3rd Floor, [address] [place], [place] [phone] Benigno Mojica MD, MS [address] [facility], [address] [place], [place] [phone] [email or web address] documented as of this encounter Visit Diagnoses Not on filedocumented in this encounter Care Teams Cartography Technician Relationship Specialty Start Date End Date Maximino Swartz DO [email or web address] PCP - General Internal Medicine 09/30/17 documented as of this encounter Additional Source Comments The information contained in this document represents components of the legal health record. It is not the complete legal health record.[facility]
--- OUTSIDE RECORDS SUMMARY | 2025-08-16 11:56 | XMS_ITS | Encounter Summary ---
Author Organization [facility] Address [address] [facility] [address] [place] [address] Phone Care Team Providers Care Incoming Freight Clerk Name Role Phone Maximino Swartz DO Primary Care Provider Encounter Details Date Type Department Care Team (Late st Contact Info) Description 11/22/2017 Procedure Pass [facility], Ct Scan - [address] [address] Social History Tobacco Use Types Packs/Day Years [...] Description 10/07/2025 11:00 AM EST Office Visit [facility] Neurology [address] [place] [address] Celio Winters MD 22 [facility], 2nd Floor [place], [place] [address] 03/10/2026 10:20 AM EDT Office Visit [facility] 22 [facility] 3rd Floor, [address] [place], [place] [address] Benigno Mojica MD, MS [address] [facility], [address] [place], [place] [address] [email or web address] documented as of this encounter Visit Diagnoses Not on filedocumented in this encounter Care Teams Incoming Freight Clerk Relationship Specialty Start Date End Date Maximino Swartz DO [email or web address] PCP - General Internal Medicine 09/30/17 documented as of this encounter Additional Source Comments The information contained in this document represents components of the legal health record. It is not the complete legal health record.[facility]
--- OUTSIDE RECORDS SUMMARY | 2025-08-16 11:56 | XMS_ITS | Encounter Summary ---
Author Organization [facility] Address [address] [address] [place] [address] Phone Care Team Providers Care Java Grails Developer Name Role Phone Maximino Swartz DO Primary Care Provider [phone] Encounter Details Date Type Department Care Team (Late st Contact Info) Description 09/30/2017 Ancillary Orders [facility], X-Ray - [facility] [address] [place] [address] Maximino Swartz DO [address] [facility] [place] [address] [email or web address] Social History Tobacco Use Types Packs/Day Years [...] Description 10/07/2025 11:00 AM EST Office Visit [facility] Neurology [address] [place] [address] Celio Winters MD 22 [facility], 2nd [place] [address] [email or web address] 03/10/2026 10:20 AM EDT Office Visit [facility] 22 [facility] 3rd Floor, [address] [place] [address] Benigno Mojica MD, MS [address] [facility], [address] [place] [address] [email or web address] documented as of this encounter Visit Diagnoses Not on filedocumented in this encounter Care Teams Java Grails Developer Relationship Specialty Start Date End Date Maximino Swartz DO PCP - General Internal Medicine 09/30/17 documented as of this encounter Additional Source Comments The information contained in this document represents components of the legal health record. It is not the complete legal health record.[facility]
--- OUTSIDE RECORDS SUMMARY | 2025-08-16 11:56 | XMS_ITS | Encounter Summary ---
Author Organization [facility] Address [address] [facility] [address] [place] [address] Phone Care Team Providers Care Bus Trolley And Taxi Instructor Name Role Phone Maximino Swartz Primary Care Provider [phone] Encounter Details Date Type Department Care Team (Latest Contact Info) Description 10/31/2018 Transcribe Orders [facility] [address] [place] [address] Meaghan Gonzalez CNP 12 [place] [address] Health check for under 8 days old (Primary Dx); Dizziness and giddiness Social History Tobacco Use Types Packs/Day Years [...] Description 10/07/2025 11:00 AM EST Office Visit [facility] Neurology [address] [place] [address] Celio Winters MD 22 [facility], 2nd [place] [address] 03/10/2026 10:20 AM EDT Office Visit [facility] 22 [facility] 3rd Floor, [address] [place] [address] Benigno Mojica MD, MS 22 [facility], [address] [place] [address] [email or web address] documented as of this encounter Results * (ABNORMAL) Lipid panel (10/31/2018 8:55 AM EST) HDL 46 mg/dL [facility] Comment: Interpretation <40 mg/dL: Low HDL cholesterol (major risk factor for CHD) Greater than or equal to 60 mg/dL: High HDL cholesterol ( negative risk factor for CHD) HDL - cholesterol is affected by a number of factors, e.g. smoking, excerise, hormones, sex and age. CHOLESTEROL 151 0 - 240 mg/dL [facility] TRIGLYCERIDES 99 30 - 160 mg/dL [facility] LDL 85 50 - 129 mg/dL [facility] Comment: LDL levels in terms of risk for coronary heart disease: <100 mg/dL: Optimal 100-129 mg/dL: Near or above optimal 130-159 mg/dL: Borderline high 160-189 mg/dL: High >190 mg/dL: Very High CARDIAC RISK RATIO 3.3(L) 3.4 - 5.0 C [facility] Blood 10/31/2018 8:55 AM EST 10/31/2018 9:05 AM EST us Meaghan Gonzalez INTERACTIVE MEDIA MARKETING SPECIALIST LAB BLOOD ORDERABLES Final Result [facility] [address] [place] [address] * (ABNORMAL) Comprehensive metabolic panel (10/31/2018 8:55 AM EST) SODIUM 142 133 - 146 mmol/L [facility] POTASSIUM 4.4 3.3 - 5.1 mmol/L [facility] CHLORIDE 105 96 - 108 mmol/L [facility] CO2 27 21 - 35 mmol/L [facility] BUN 14 6 - 19 mg/dL [facility] CREATININE 1.20 0.5 - 1.5 mg/dL [facility] GLUCOSE 107(H) 70 - 99 mg/dL [facility] ALBUMIN 4.0 3.9 - 4.8 g/dL [facility] TOTAL PROTEIN 7.1 6.5 - 8.0 g/dL [facility] CALCIUM 8.9 8.4 - 10.3 mg/dL [facility] ALKALINE PHOSPHATASE 56 39 - 117 U/L [facility] TOTAL BILIRUBIN 0.4 0.0 - 1.2 mg/dL [facility] AST 23 0 - 37 U/L [facility] ALT 21 0 - 40 U/L [facility] GLOBULIN 3.1 1 - 4.8 g/dL [facility] EGFR 63 >59 mL/min/1.7 3m2 [facility] Comment:If patient is black, multiply result by 1.159. Estimated glomerular filtration rate calculated using the CKD-EPI equation. ANION GAP 14 10 - 20 mmol/L [facility] Blood 10/31/2018 8:55 AM EST 10/31/2018 9:05 AM EST Meaghan Gonzalez INTERACTIVE MEDIA MARKETING SPECIALIST LAB BLOOD ORDERABLES Final Result [facility] [address] [place] [address] * (ABNORMAL) CBC and differential (10/31/2018 8:55 AM EST) WBC 6.17 3.40 - 11.20 K/uL [facility] RBC 6.00(H) 4.50 - 5.50 M/uL [facility] HGB 16.2 13.0 - 17.0 g/dL [facility] HCT 49.4 40.0 - 51.0 % [facility] PLT 206 130 - 400 K/uL [facility] MCV 82.3 79.0 - 98.0 fL [facility] MCH 27.0 27.0 - 34.8 pg [facility] MCHC 32.8 31.5 - 36.0 g/dL [facility] RDW 13.0 10.8 - 14.6 % [facility] MPV 9.7 9.4 - 12.4 fl [facility] NRBC 0.00 0.00 /100 WBCs [facility] ABSOLUTE NRBC 0.00 0.00 K/uL [facility] DIFF METHOD Auto [facility] NEUTS 68.1 45.30 - 77.70 % [facility] LYMPHS 21.7 12.30 - 39.70 % [facility] MONOS 7.3 4.10 - 12.80 % [facility] EOS 2.1 0 - 7.2 % [facility] BASOS 0.5 0 - 2.80 % [facility] Granulocytes, immature (%) 0.3 0.0 - 0.9 % [facility] ABSOLUTE NEUTS 4.20 1.40 - 7.70 K/uL [facility] ABSOLUTE LYMPHS 1.34 0.60 - 3.20 K/uL [facility] ABSOLUTE MONOS 0.45 0.11 - 0.59 K/uL [facility] ABSOLUTE EOS 0.13 0.01 - 0.50 K/uL [facility] ABSOLUTE BASOS 0.03 0.00 - 0.08 K/uL [facility] Granulocytes, immature 0.02 0.00 - 0.05 K/uL [facility] Blood 10/31/2018 8:55 AM EST 10/31/2018 9:05 AM EST us Meaghan Gonzalez INTERACTIVE MEDIA MARKETING SPECIALIST LAB BLOOD ORDERABLES Final Result [facility] [address] [place] [address] * Free T4 (10/31/2018 8:55 AM EST) FREE T4 1.3 0.9 - 1.7 ng/dL [facility] Blood 10/31/2018 8:55 AM EST 10/31/2018 9:05 AM EST us Meaghan Gonzalez INTERACTIVE MEDIA MARKETING SPECIALIST LAB BLOOD ORDERABLES Final Result Performing Organization Address City/[facility]/ZIP Co de Phone Number [address] [address] * TSH (10/31/2018 8:55 AM EST) TSH 1.17 0.27 - 4.20 uIU/mL [facility] Blood 10/31/2018 8:55 AM EST 10/31/2018 9:05 AM EST us Meaghan Gonzalez INTERACTIVE MEDIA MARKETING SPECIALIST LAB BLOOD ORDERABLES Final Result Performing Organization Address [facility] Co de Phone Number [address] [address] * Vitamin B12 (10/31/2018 8:55 AM EST) VITAMIN B12 481 232 - 1,245 pg/mL [facility] Blood 10/31/2018 8:55 AM EST 10/31/2018 9:05 AM EST us Meaghan Franklin Cristobalsuad INTERACTIVE MEDIA MARKETING SPECIALIST LAB BLOOD ORDERABLES Final Result Performing Organization Address [facility]/ZIP Co de Phone Number [address] [address] * (ABNORMAL) 25-OH vitamin D (10/31/2018 8:55 AM EST) 25 [place] VIT D (TOTAL) 25(L) 30 - 60 ng/mL [facility] Blood 10/31/2018 8:55 AM EST 10/31/2018 9:05 AM EST us Meaghan Gonzalez INTERACTIVE MEDIA MARKETING SPECIALIST LAB BLOOD ORDERABLES Final Result Performing Organization Address [facility]/ZIP Co de Phone Number [address] [address] * Hepatitis C antibody, qualitative (10/31/2018 8:55 AM EST) HCV Negative Negative [facility] Comment: This is a screening test and should be confirmed with molecular testing Blood 10/31/2018 8:55 AM EST 10/31/2018 9:05 AM EST us Meaghan Gonzalez INTERACTIVE MEDIA MARKETING SPECIALIST LAB BLOOD ORDERABLES Final Result [facility] [address] [place] [address] documented in this encounter Visit Diagnoses Diagnosis Health check for under 8 days old- Primary Health supervision for under 8 days old Dizziness and giddiness documented in this encounter Care Teams Bus Trolley And Taxi Instructor Relationship Specialty Start Date End Date Maximino Swartz DO [email or web address] PCP - General Internal Medicine 09/30/17 documented as of this encounter Additional Source Comments The information contained in this document represents components of the legal health record. It is not the complete legal health record.[facility]
--- OUTSIDE RECORDS SUMMARY | 2025-08-16 11:56 | XMS_ITS | Encounter Summary ---
Author Organization [facility] Address [address] [place] [address] Phone Care Team Providers Care Forest Pathologist Name Role Phone Maximino Swartz DO Primary Care Provider [phone] Encounter Details Date Type Department Care Team (Late st Contact Info) Description 05/02/2023 Procedure Pass [address] [place] [address] Social History Tobacco Use Types Packs/Day Years [...] Description 10/07/2025 11:00 AM EST Office Visit [facility] Neu[facility] 22 [place] [address] Celio Winters MD 22 [facility], 2nd [place] [address] 03/10/2026 10:20 AM EDT Office Visit [facility] 22 [facility] 3rd Floor, [address] [place] [address] Benigno Mojica MD, MS [address] [facility], [address] [place] [address] [email or web address] documented as of this encounter Visit Diagnoses Not on filedocumented in this encounter Care Teams Forest Pathologist Relationship Specialty Start Date End Date Maximino Swartz DO PCP - General Internal Medicine 09/30/17 documented as of this encounter Additional Source Comments The information contained in this document represents components of the legal health record. It is not the complete legal health record.[facility]
--- OUTSIDE RECORDS SUMMARY | 2025-08-16 11:56 | XMS_ITS | Encounter Summary ---
Author Organization [facility] Address [address] [place] [address] Phone Care Team Providers Care Jute Bag Cutting Machine Operator Name Role Phone Maximino Swartz DO Primary Care Provider [phone] Encounter Details Date Type Department Care Team (Late st Contact Info) Description 06/13/2023 Procedure Pass OR Admitting Dept - Virtual Department 30 [place] [address] Social History Tobacco Use Types Packs/Day Years [...] Description 10/07/2025 11:00 AM EST Office Visit [facility] Neu[facility] [address] [place] [address] Celio Winters MD 22 [facility], 2nd [place] [address] 03/10/2026 10:20 AM EDT Office Visit [facility] 22 [facility] 3rd Floor, [address] [place] [address] Benigno Mojica MD, MS 22 [facility], [address] [place] [address] [email or web address] documented as of this encounter Visit Diagnoses Not on filedocumented in this encounter Care Teams Jute Bag Cutting Machine Operator Relationship Specialty Start Date End Date Maximino Swartz DO PCP - General Internal Medicine 09/30/17 documented as of this encounter Additional Source Comments The information contained in this document represents components of the legal health record. It is not the complete legal health record.[facility]
--- OUTSIDE RECORDS SUMMARY | 2025-08-16 11:56 | XMS_ITS | Encounter Summary ---
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) Social History Tobacco Use Types [...] Description 10/07/2025 11:00 AM EST Office Visit [facility] [address] [place] [address] Celio Winters MD [address] [facility], 2nd [place] [address] 03/10/2026 10:20 AM EDT Office Visit [facility] [address] [facility] 3rd Floor, [address] [place] [address] Benigno Mojica MD, [place] [address] [facility], [address] [place] [address] [email or web address] documented as of this encounter Results * (ABNORMAL) PSA (screening) (11/29/2017 9:40 AM EST) PSA 4.54(H) 0 - 4.00 ng/mL Blood 11/29/2017 9:40 AM EST 11/29/2017 9:55 AM EST us Vick Flores MD LAB BLOOD ORDERABLES Final Res ult [address] [place] [address] documented in this encounter Visit Diagnoses Diagnosis Benign localized hyperplasia of prostate with urinary retention- Primary Benign localized hyperplasia of prostate with urinary obstruction and other lower urinary tract symptoms (LUTS) documented in this encounter Care Teams Layer Up Relationship Specialty Start Date End Date Maximino Swartz DO [email or web address] PCP - General Internal Medicine 09/30/17 documented as of this encounter Additional Source Comments The information contained in this document represents components of the legal health record. It is not the complete legal health record.[facility]
--- OUTSIDE RECORDS SUMMARY | 2025-08-16 11:56 | XMS_ITS | Encounter Summary ---
Author Organization [facility] Address [address] [place] [address] Phone Care Team Providers Care Logging Worker Name Role Phone Or[place]arin Maximino Cronin DO Primary Care Provider [phone] Encounter Details Date Type Department Care Team (Late st Contact Info) Description 04/29/2023 Ancillary Orders [facility], X-Ray - [address] [address] Irma Valdez PA [address] [facility] [place] [address] [place] [address] Acute pain of left knee Social History Tobacco Use Types Packs/Day Years [...] Description 10/07/2025 11:00 AM EST Office Visit [facility] [address] [place] [address] Celio Winters MD [address] [facility], 2nd [place] [address] 03/10/2026 10:20 AM EDT Office Visit [facility] [address] [facility] [address], [address] [place] [address] Benigno Mojica MD, MS [address] [facility], [address] [place] [address] [email or web address] documented as of this encounter Results * XR KNEE 4 OR MORE VIEWS (LEFT) (04/29/2023 12:50 PM EDT) Anatomical Region Laterality Modality Knee Left Computed Radiogr aphy 04/29/2023 11:4 2 PM EDT Impressions 04/29/2023 11:44 PM EDT Left knee tricompartmental osteoarthritis, 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 Incidental right knee osteoarthritis, severe in the lateral compartment. Narrative 04/29/2023 11:44 PM EDT XR KNEE 4 OR MORE VIEWS (LEFT) COMPARISON: None FINDINGS: LEFT KNEE: Knee joint space narrowing with subchondral sclerosis, cystic change, and marginal osteophytes is moderate to severe in the patellofemoral, mild in the medial, and mild in the lateral compartment. No joint effusion. No acute fracture or dislocation. Bones demineralized. RIGHT KNEE: Frontal radiograph only of the right knee show no acute displaced fracture or malalignment. Severe lateral and moderate medial compartment joint space narrowing. Procedure Note Chen Ziegler MD - 04/29/2023 XR KNEE 4 OR MORE VIEWS (LEFT) COMPARISON: None FINDINGS: LEFT KNEE: Knee joint space narrowing with subchondral sclerosis, cystic change, andmarginal osteophytes is moderate to severe in the patellofemoral, mild inthe medial, and mild in the lateral compartment. No joint effusion. Noacute fracture or dislocation. Bones demineralized. RIGHT KNEE: Frontal radiograph only of the right knee show no acute displaced fractureor malalignment. Severe lateral and moderate medial compartment jointspace narrowing. IMPRESSION: Left knee tricompartmental osteoarthritis, moderate to severe in thepatellofemoral compartment. Incidental right knee osteoarthritis, severe in the lateral compartment. Irma DUNLAP IMG XR LOWER EXTREMITY Shirlene l Result documented in this encounter Visit Diagnoses Diagnosis Acute pain of left knee Acute pain of left knee documented in this encounter Care Teams Logging Worker Relationship Specialty Start Date End Date Maximino Swartz DO [email or web address] PCP - General Internal Medicine 09/30/17 documented as of this encounter Additional Source Comments The information contained in this document represents components of the legal health record. It is not the complete legal health record.[facility]
--- OUTSIDE RECORDS SUMMARY | 2025-08-16 11:56 | XMS_ITS | Encounter Summary ---
Author Organization [facility] Address [address] [facility] [address] [place] [address] Phone Care Team Providers Care Produce Shipper Name Role Phone Maximino Swartz DO Primary Care Provider [phone] Reason for Referral * MRI/CAT Scan - Closed Specialty Diagnoses / Procedures Referred By Contac t Referred To Contact Radiology Diagnoses Other internal derangements of unspecified knee Procedures MRI Knee (Left) Irma Valdez PA [address] [facility] [place] [address] Phone: tel: fax: Referral ID Status Reason Start Date Expiration Date Visits Re quested Visits Authorized [id number] Closed 05/02/2023 1 1 Encounter Details Date Type Department Care Team (Latest Contact Info) Description 05/02/2023 Transcribe Orders Virtual Department [address] [place] [address] Irma Valdez PA [address] [facility] [place] [address] Other internal derangements of unspecified knee (Primary Dx) Social History Tobacco Use Types [...] Description 10/07/2025 11:00 AM EST Office Visit [facility] Neurology [address] [place] [address] Celio Winters MD [address] [place] [address], [address] [place] [address] 03/10/2026 10:20 AM EDT Office Visit [facility] [address] [place] [address] [address] [facility], [address] [place] [id number] Benigno Mojica MD, MS [address] [place] [address], [address] [address] documented as of this encounter Results * MRI KNEE WITHOUT CONTRAST (LEFT) (05/14/2023 12:27 PM EDT) Anatomical Region Laterality Modality Knee Left Magnetic Resonan ce 05/16/2023 11:0 2 AM EDT Impressions 05/16/2023 12:58 PM EDT Complex tear of the medial meniscus body and posterior horn with peripheral displacement into the medial joint recess. Tricompartmental cartilage loss, severe in the patellofemoral, moderate in the medial, and mild to moderate in the lateral compartments. Suprapatellar fat pad edema with convex margin, may reflect suprapatellar fat pad impingement. Distal quadriceps tendinopathy without tear. Narrative 05/16/2023 12:58 PM EDT MRI KNEE WITHOUT CONTRAST (LEFT) TECHNIQUE: MRI KNEE WITHOUT CONTRAST (LEFT) COMPARISON: XR KNEE 4 OR MORE VIEWS (LEFT) FINDINGS: MEDIAL COMPARTMENT: Complex tear of the medial meniscus body and posterior horn with radial and horizontal components. Moderate diffuse cartilage thinning with multifocal fissuring and flap formation. Subchondral bone marrow edema in the medial tibial plateau. LATERAL COMPARTMENT: No meniscal tear. Mild to moderate diffuse cartilage loss without full-thickness defect. PATELLOFEMORAL COMPARTMENT: Normal patellofemoral alignment. Full-thickness cartilage loss over the medial and lateral patellar facets. Full-thickness cartilage defect over the lateral femoral trochlea with associated subchondral cyst formation (5:12, 3:20). TENDONS: Distal quadriceps tendinopathy without tear. Popliteus and patellar tendons intact. LIGAMENTS: ACL, PCL, MCL, and LCL complex intact. BONE: No fracture, osteonecrosis, or focal lesion. JOINT: No joint effusion. 1.5 cm Trevino's cyst. Suprapatellar fat pad edema with convex margin. Procedure Note Chen Ziegler MD - 05/16/2023 MRI KNEE WITHOUT CONTRAST (LEFT) TECHNIQUE: MRI KNEE WITHOUT CONTRAST (LEFT) COMPARISON: XR KNEE 4 OR MORE VIEWS (LEFT) FINDINGS: MEDIAL COMPARTMENT: Complex tear of the medial meniscus body and posteriorhorn with radial and horizontal components. Moderate diffuse cartilagethinning with multifocal fissuring and flap formation. Subchondral bonemarrow edema in the medial tibial plateau. LATERAL COMPARTMENT: No meniscal tear. Mild to moderate diffuse cartilageloss without full-thickness defect. PATELLOFEMORAL COMPARTMENT: Normal patellofemoral alignment.Full-thickness cartilage loss over the medial and lateral patellar facets.Full-thickness cartilage defect over the lateral femoral trochlea withassociated subchondral cyst formation (5:12, 3:20). TENDONS: Distal quadriceps tendinopathy without tear. Popliteus andpatellar tendons intact. LIGAMENTS: ACL, PCL, MCL, and LCL complex intact. BONE: No fracture, osteonecrosis, or focal lesion. JOINT: No joint effusion. 1.5 cm Trevino's cyst. Suprapatellar fat padedema with convex margin. IMPRESSION: Complex tear of the medial meniscus body and posterior horn withperipheral displacement into the medial joint recess. Tricompartmental cartilage loss, severe in the patellofemoral, moderate inthe medial, and mild to moderate in the lateral compartments. Suprapatellar fat pad edema with convex margin, may reflect suprapatellarfat pad impingement. Distal quadriceps tendinopathy without tear. Irma DUNLAP IMG MR EXTREMITY Final Resu lt documented in this encounter Visit Diagnoses Diagnosis Other internal derangements of unspecified knee- Primary Other internal derangements of unspecified knee documented in this encounter Care Teams Produce Shipper Relationship Specialty Start Date End Date Maximino Swartz DO [email or web address] PCP - General Internal Medicine 09/30/17 documented as of this encounter Additional Source Comments The information contained in this document represents components of the legal health record. It is not the complete legal health record.[facility]
[2025-08-16 13:14] LABS: MANUAL DIFF FLAG NO
[2025-08-16 13:44] LABS: Hematocrit 45.3 % (42.0-52.0); Hemoglobin 15.5 g/dl (14.0-18.0); Imm Gran Abs Auto 0.01 X10*3/uL (0.00-0.03); Imm Gran Pct Auto 0.2 % (0.0-0.4); Lymphocytes Absolute Auto 0.5 X10*3/uL (1.2-4.9); Mean Corpuscular HGB Conc 34.2 g/dl (31.0-36.0); Mean Corpuscular Hemoglobin 27.7 pg (27.0-33.0); Mean Corpuscular Volume 80.9 fL (80.0-98.0); NRBC Abs Auto 0.000 X10*3/uL (0.0-0.012); NRBC Pct Auto 0.0 /100WBC (0.0-0.2); Platelet Count 151 X10*3/uL (160-400); Red Blood Count 5.60 X10*6/uL (4.60-5.80); White Blood Count 4.5 X10*3/uL (4.8-10.8)
[2025-08-16 14:05] LABS: Alanine Aminotransferase 20 U/L (0-40); Albumin Level 4.2 g/dL (3.5-5.0); Alkaline Phosphatase 71 U/L (39-117); Anion Gap 10 (12-20); Aspartate Amino Transferase 24 U/L (5-37); Blood Urea Nitrogen 14 mg/dL (9-16); Calcium 8.6 mg/dL (8.4-10.2); Carbon Dioxide 28 mmol/L (22-29); Chloride 107 mmol/L (96-108); Cholesterol 140 mg/dL (<200); Estimated Glomerular Filt Rate 49; HDL Cholesterol 38 mg/dL (>40); Potassium 3.8 mmol/L (3.3-5.1); Sodium 141 mmol/L (135-145); Total Protein 7.2 g/dL (6.5-8.0); Triglycerides 140 mg/dL (<150)
[2025-08-16 14:22] LABS: Prostate Specific Antigen 3.76 ng/mL (<0.05-4.0); Vitamin B12 405 pg/mL (200-900)
== END 2025-08-16 11:08 | disposition home or self-care (01) ==
LOC: HO.MANLDS 11:07
PROVIDERS: Visit Provider Internal Medicine
DX: Z00.00 Encounter for general adult medical examination without abnormal findings (principal); Z13.6 Encounter for screening for cardiovascular disorders; Z12.5 Encounter for screening for malignant neoplasm of prostate; N40.1 Benign prostatic hyperplasia with lower urinary tract symptoms
CPT/HCPCS: 36415; 80053; 80061; 82607; 84153; 85025